=== PATIENT | female | born 1955 | race Caucasian/White ===

== ENCOUNTER → 2017-07-31 | Outpatient (CLI) | payer BC ==
[~2017-07-31] MED LIST: BENICAR HCT 12.1 TAB PO; PRENATAL PO
== END ==
LOC: MC.RAD 06:57
DX: Z12.31 Encounter for screening mammogram for malignant neoplasm of breast (principal)

== ENCOUNTER → 2018-06-13 | Outpatient (CLI) | payer BC | LOC: COL.RAD 14:10 | DX: N85.8 Other specified noninflammatory disorders of uterus (principal); N83.202 Unspecified ovarian cyst, left side; N83.201 Unspecified ovarian cyst, right side ==

== ENCOUNTER → 2018-08-01 | Outpatient (CLI) | payer BC | LOC: MC.RAD 07:00 | DX: Z12.31 Encounter for screening mammogram for malignant neoplasm of breast (principal) ==

== ENCOUNTER → 2019-08-04 | Outpatient (CLI) | payer BC | LOC: MC.RAD 14:46 | DX: Z12.31 Encounter for screening mammogram for malignant neoplasm of breast (principal) ==

== ENCOUNTER → 2020-05-26 | Outpatient (CLI) | payer BC | LOC: ZCOL.LAB 16:58 | DX: Z20.828 Contact with and (suspected) exposure to other viral communicable diseases (principal) ==

== ENCOUNTER 2020-06-03 07:26 | Day surgery (SDC) | payer BC ==
[~2020-06-03] VITALS: Ht 165.1 cm; Wt 75.5 kg
[2020-06-03 07:53] VITALS: BP 113/79; PULSE 69; TEMP 98.1
[2020-06-03] MEDS ORDERED: LOTENSIN20 MG PO (08:05)
[2020-06-03] MEDS ORDERED: HCTZ12.5TAB PO (08:06)
--- NOTE | 2020-06-03 08:08 | NUR ---
TO RM AT 0730- CALL LIGHT IN REACH
[2020-06-03 09:40] VITALS: BP 112/55; PULSE 55; TEMP 98.2
--- NOTE | 2020-06-03 09:40 | NUR ---
Pt to [facility] via cart from [facility]. Pt drowsy. Pt transfers to recliner with 2 assist. Pt made comfortable. Warm blanket provided. Pt quickly falls back to sleep. Call light within reach.
[2020-06-03 09:55] VITALS: BP 123/61; PULSE 53
--- NOTE | 2020-06-03 09:55 | NUR ---
Pt continues to rest. Has been up to restroom with stand by assistance. Water given per request. Pt sleeping at this time. Respirations even and unlabored. Call light within reach.
[2020-06-03 10:20] VITALS: BP 134/60; PULSE 44
--- NOTE | 2020-06-03 10:20 | NUR ---
Pt continues to rest. Dozing on and off. Denies needs. Call light within reach.
[2020-06-03 10:35] VITALS: BP 129/62; PULSE 46
--- NOTE | 2020-06-03 10:35 | NUR ---
Pt continues to rest. Denies needs. Call light within reach.
--- NOTE | 2020-06-03 10:54 | NUR ---
Pt up to dress. Pt awake and alert. Will continue to monitor.
--- NOTE | 2020-06-03 11:00 | NUR ---
Discharge instructions reviewed. Pt voices understanding. IV site discontinued with all parts intact.
--- NOTE | 2020-06-03 11:19 | NUR ---
Pt escorted to private car via wheel chair. Pt accompanied home by her
== END 2020-06-03 11:20 | disposition home or self-care (01) ==
LOC: SDCO 07:26
DX: Z12.11 Encounter for screening for malignant neoplasm of colon (principal); K63.5 Polyp of colon; K57.30 Diverticulosis of large intestine without perforation or abscess without bleeding; Z03.818 Encounter for observation for suspected exposure to other biological agents ruled out; Z87.891 Personal history of nicotine dependence; Z80.1 Family history of malignant neoplasm of trachea, bronchus and lung; Z83.3 Family history of diabetes mellitus; I10 Essential (primary) hypertension; M67.472 Ganglion, left ankle and foot; M67.471 Ganglion, right ankle and foot; E78.5 Hyperlipidemia, unspecified
CPT/HCPCS: J2704; J7030

== ENCOUNTER → 2020-08-18 | Outpatient (CLI) | payer BC ==
[~2020-08-18] MED LIST changes: +HCTZ12.5TAB PO; +LOTENSIN20 MG PO
== END ==
LOC: MC.RAD 07:04
DX: Z12.31 Encounter for screening mammogram for malignant neoplasm of breast (principal)

== ENCOUNTER → 2021-07-21 | Outpatient (CLI) | payer BC | LOC: MC.RAD 07:00 | DX: Z12.31 Encounter for screening mammogram for malignant neoplasm of breast (principal) ==

== ENCOUNTER → 2023-09-06 | Outpatient (CLI) | payer BC | LOC: CANSCHCLI → MC.RAD 06:50 | DX: Z12.31 Encounter for screening mammogram for malignant neoplasm of breast (principal) ==